=== PATIENT | female | born 1985 | race Caucasian/White ===

== ENCOUNTER → 2019-02-27 14:09 | Outpatient (BNVA) | payer BC, SELFPAY | PROVIDERS: Family Provider Nurse Practitioner Family; PCP Nurse Practitioner Family; Visit Provider Nurse Practitioner Women's Health | DX: Z01.89 Encounter for other specified special examinations (principal) | CPT/HCPCS: 84315 ==

== ENCOUNTER → 2019-03-07 16:45 | Outpatient (BNVA) | payer BC, SELFPAY | PROVIDERS: Family Provider Nurse Practitioner Family; PCP Nurse Practitioner Family; Visit Provider Obstetrics & Gynecology | DX: Z34.81 Encounter for supervision of other normal pregnancy, first trimester (principal) | CPT/HCPCS: 80307; 84315; 85027; 86592; 86762; 86803; 86850; 86900; 87086; 87340 ==

== ENCOUNTER → 2019-03-20 12:30 | Outpatient (BNVA) | payer BC, SELFPAY | PROVIDERS: Family Provider Nurse Practitioner Family; PCP Nurse Practitioner Family; Visit Provider Obstetrics & Gynecology | DX: O99.210 Obesity complicating pregnancy, unspecified trimester (principal) | CPT/HCPCS: 82950; 84315; 87491; 87591 ==

== ENCOUNTER → 2019-04-05 08:25 | Outpatient (BNVA) | payer OTHER, BC, SELFPAY | PROVIDERS: Family Provider Nurse Practitioner Family; PCP Nurse Practitioner Family; Referring Provider Obstetrics & Gynecology; Visit Provider Obstetrics & Gynecology | DX: O99.211 Obesity complicating pregnancy, first trimester (principal); R73.09 Other abnormal glucose; Z3A.12 12 weeks gestation of pregnancy | CPT/HCPCS: 82951; 82952 ==

== ENCOUNTER → 2019-04-19 08:03 | Outpatient (BNVA) | payer BC, SELFPAY | PROVIDERS: Family Provider Nurse Practitioner Family; PCP Nurse Practitioner Family; Visit Provider Obstetrics & Gynecology | DX: Z34.90 Encounter for supervision of normal pregnancy, unspecified, unspecified trimester (principal); R31.9 Hematuria, unspecified | CPT/HCPCS: 84315; 87086 ==

== ENCOUNTER → 2019-05-13 09:54 | Outpatient (BNVA) | payer BC, SELFPAY | PROVIDERS: Family Provider Nurse Practitioner Family; PCP Nurse Practitioner Family; Referring Provider Obstetrics & Gynecology; Visit Provider Obstetrics & Gynecology | DX: Z36.89 Encounter for other specified antenatal screening (principal); Z3A.20 20 weeks gestation of pregnancy | CPT/HCPCS: 76805 ==

== ENCOUNTER → 2019-05-16 08:20 | Outpatient (BNVA) | payer BC, SELFPAY | PROVIDERS: Family Provider Nurse Practitioner Family; PCP Nurse Practitioner Family; Visit Provider Obstetrics & Gynecology | DX: Z01.89 Encounter for other specified special examinations (principal) | CPT/HCPCS: 84315 ==

== ENCOUNTER → 2019-06-12 13:22 | Outpatient (BNVA) | payer BC, SELFPAY | PROVIDERS: Family Provider Nurse Practitioner Family; PCP Nurse Practitioner Family; Visit Provider Obstetrics & Gynecology | DX: Z34.82 Encounter for supervision of other normal pregnancy, second trimester (principal); Z3A.24 24 weeks gestation of pregnancy | CPT/HCPCS: 76816; 84315 ==

== ENCOUNTER → 2019-07-08 07:46 | Outpatient (BNVA) | payer BC, SELFPAY | PROVIDERS: Family Provider Nurse Practitioner Family; PCP Nurse Practitioner Family; Visit Provider Obstetrics & Gynecology | DX: O99.211 Obesity complicating pregnancy, first trimester (principal); Z39.1 Encounter for care and examination of lactating mother; O26.891 Other specified pregnancy related conditions, first trimester; Z67.91 Unspecified blood type, Rh negative; O99.213 Obesity complicating pregnancy, third trimester; O26.893 Other specified pregnancy related conditions, third trimester; J45.909 Unspecified asthma, uncomplicated; Z3A.28 28 weeks gestation of pregnancy | CPT/HCPCS: 82951; 82952; 84315; 85027; 86850 ==

== ENCOUNTER 2019-08-16 06:56 | Outpatient (CLI) | payer BC, SELFPAY ==
--- NOTE | 2019-08-16 07:05 | US_ITS ---
WS: [id number] BIOPHYSICAL PROFILE HISTORY: GDM BPP @ 7:15am COMPARISON: 08/09/2019 Cardiac activity: 133 bpm. Cervix: Not visualized. Placenta: Anterior, no previa or abruption. Placenta grade: 1 Parameters are as follows: Breathin Movement: 2 Tone: 2 Fluid volume: 2 Largest vertical pocket of amniotic fluid 5.3 cm. 1. Biophysical profile score: 8/8. 2. Normal cardiac activity. US/US OB BPP wo NST [id number] IMPRESSION:
== END 2019-08-16 06:57 | disposition home or self-care (01) ==
PROVIDERS: Family Provider Nurse Practitioner Family; PCP Nurse Practitioner Family; Visit Provider Obstetrics & Gynecology
DX: O24.410 Gestational diabetes mellitus in pregnancy, diet controlled (principal); O09.893 Supervision of other high risk pregnancies, third trimester
CPT/HCPCS: 76819

== ENCOUNTER 2019-08-16 07:30 | Outpatient (CLI) | payer BC, OTHER, SELFPAY ==
[2019-08-16 07:47] VITALS: BP 0/0
[2019-08-16 07:48] VITALS: BP 113/60; PULSE 84
[2019-08-16 08:18] VITALS: BP 104/64; PULSE 80
[2019-08-16 09:55] VITALS: BP 104/64; PULSE 80
== END 2019-08-16 08:25 | disposition home or self-care (01) ==
LOC: OPOB 07:36 → OBGYN 07:37
PROVIDERS: Family Provider Nurse Practitioner Family; PCP Nurse Practitioner Family; Visit Provider Obstetrics & Gynecology
DX: O24.919 Unspecified diabetes mellitus in pregnancy, unspecified trimester (principal); Z3A.00 Weeks of gestation of pregnancy not specified
CPT/HCPCS: 59025; 99211

== ENCOUNTER → 2019-09-05 09:21 | Outpatient (BNVA) | payer BC, OTHER, SELFPAY | PROVIDERS: Family Provider Nurse Practitioner Family; PCP Nurse Practitioner Family; Visit Provider Obstetrics & Gynecology | DX: O09.893 Supervision of other high risk pregnancies, third trimester (principal); O24.410 Gestational diabetes mellitus in pregnancy, diet controlled; O99.613 Diseases of the digestive system complicating pregnancy, third trimester; K21.9 Gastro-esophageal reflux disease without esophagitis | CPT/HCPCS: 84315; 87081 ==

== ENCOUNTER 2019-09-28 11:49 | Inpatient (IN) | payer BC, OTHER, SELFPAY ==
[2019-09-28] VITALS (15 sets, daily range): BP systolic 0–127; BP diastolic 0–73; PULSE 66–84; RESP 16; TEMP 36.5–36.6; BMI 36.9
[2019-09-28 13:00] LABS: Basophils % 0.3 %; Eosinophils # 0.1 10^3/uL (0.0-0.8); Eosinophils % 0.4 %; Hemoglobin 12.2 g/dL (11.5-15.3); Lymphocytes # 2.8 10^3/uL (0.8-4.8); Lymphocytes % 23.6 %; Mean Corpuscular Hemoglobin 28.8 pg (28.0-34.0); Mean Corpuscular Volume 87.5 fL (81-99); Mean Platelet Volume 10.3 fL (7.4-10.4); Monocytes # 0.5 10^3/uL (0.2-0.9); Monocytes % 4.5 %; Neutrophils # 8.44 10^3/uL (1.8-7.7); Neutrophils % 70.6 %; Nucleated Red Blood Cells % 0 %; Platelet Count 302 10^3/cmm (130-400); Red Blood Count 4.23 10^6/uL (4.1-5.3); Red Cell Distribution Width 13.9 % (12.1-15.1)
[2019-09-28] MEDS: miSOPROStol 100 mcg tablet 25 MCG VAGINAL (13:16)
[2019-09-28 15:25] LABS: Glucose Point of Care 82 mg/dL (70-110)
[2019-09-28 17:17] LABS: Glucose Point of Care 130 mg/dL (70-110)
[2019-09-28 19:22] LABS: Glucose Point of Care 72 mg/dL (70-110)
[2019-09-28 20:54] LABS: Glucose Point of Care 84 mg/dL (70-110)
[2019-09-28 22:39] LABS: Glucose Point of Care 117 mg/dL (70-110)
[2019-09-29] VITALS (167 sets, daily range): BP systolic 0–135; BP diastolic 0–82; PULSE 51–103; TEMP 36.5–37; O2SAT 94–99
[2019-09-29] MEDS: ondansetron 2 mg/ML SDV 2 mL 4 MG IVP ×2 (00:13→16:20)
[2019-09-29] MEDS: dextrose 5%-lactated ringers 1,000 ML 125 ML IV ×2 (00:14→20:30)
[2019-09-29 00:44] LABS: Glucose Point of Care 101 mg/dL (70-110)
[2019-09-29] MEDS: oxytocin 30 UNIT/500 ML BAG IV (01:07)
[2019-09-29] MEDS: lactated ringers 1,000 ML 999 ML IV ×2 (01:19→05:32)
--- NOTE | 2019-09-29 01:41 | PC.NURSE ---
Fluid bolus going for epidural
[2019-09-29] MEDS: lactated ringers 1,000 ML 500 ML IV (02:31)
--- NOTE | 2019-09-29 03:05 | ANES.PREANE2 ---
Pre-Anesthetic Assessment Pre-Anesthetic Assessment: Height/Weight: Height 1.7 m Weight 107.048 kg Temp Pulse Resp BP Pulse Ox 97.9 F 72 16 128/61 94 09/28/19 22:30 09/29/19 03:01 09/28/19 12:26 09/29/19 03:01 09/29/19 03:01 Preop Diagnosis: Labor Pain Familial anesthetic complications: DON Was Beta Mendez taken within 24 hours: N/A Last Intake: 21:00 Social: Social History: No alcohol and No tobacco Exam: Pre-Anes Outpt Exam: alert, oriented x 3, clear to auscultation bilaterally and regular rate & rhythm Airway: Submandibular: WNL Cervical ROM: WNL MP: 2 Dentition: Full History/ROS: No significant history except as noted and No significant complaints Pulmonary: Pulmonary: None reported CV/HEM: CV/HEM: None reported : : None reported Hepatic: Hepatic: None reported GI: GI: GERD Metabolic: Metabolic: DM Musc/skel: Musc/skel: None reported Neuropsych: Neuropsych: None reported Anesthetic Plan: ASA status: 2 Anesthesia: Anesthesia Evaluation and Regional (specify below) Other: DON Risk of > 500 ml blood loss (7ml/kg in children): No Meds/Allergies Current Medications: Current Medications Generic Name Dose Route Start Last Admin Trade Name Freq PRN Reason Stop Dose Admin Dextrose/Lactated Ringer's 1,000 mls @ 125 m ls/hr 09/28/19 12:30 09/29/19 01:14 Dextrose 5%-Lact ated Ringers IV 0 mls/hr .Q8H ZULLY Infusion Lactated Ringer's 1,000 mls @ 999 m ls/hr 09/28/19 12:25 09/29/19 01:19 Lactated Ringers IV 999 mls/hr .Q1H1M PRN Administration BLEEDING Oxytocin 30 unit in 500 ml s @ 1 mls/hr 09/29/19 01:00 09/29/19 01:14 Pitocin IV 2 milliunit/min .Q24H ZULLY 2 mls/hr Titration Protocol 1 MILLIUNIT/MIN Ondansetron HCl 4 mg 09/28/19 12:25 09/29/19 00:13 Zofran IVP 4 mg Q4H PRN Administration NAUSEA AND VOMITI NG PFSH Anesthesia PFSH: Medical History Allergy-induced asthma Surgical History History of dilatation and curettage (03/09/18) Treatment blighted ovum. Performed by Dr. Milo Walden at [facility] in [place], [place]. S/P tonsillectomy and adenoidectomy (~1992) 8 years old Family History Family/Other Thyroid disease Paternal aunt Breast cancer Maternal aunt Uterine cancer Great-grandmother Grandmother Diabetes Maternal Hypertension Paternal Stroke Paternal Hyperlipidemia Paternal Grandfather Diabetes Paternal Hypertension Paternal CAD (coronary artery disease) Paternal Family/Other Diabetes Paternal aunt Father Hypertension Stroke Grandfather CAD (coronary artery disease) Maternal Social History Smoking and tobacco status: former smoker Alcohol intake: never Other details last substance use: Denies drug use. Female Reproductive History: Date of last menstrual period: 12/23/18 : 2 Para: 1 Spontaneous abortions: Yes Data Anesthesia CBC & Chem 7: 09/28/19 12:40 Other Labs: Laboratory Results - last 48 hr 09/28/19 09/28/19 09/28/19 12:40 15:19 17:10 WBC 12.0 H RBC 4.23 Hgb 12.2 Hct 37.0 MCV 87.5 MCH 28.8 MCHC 33.0 RDW 13.9 Plt Count 302 MPV 10.3 Neut % (Auto) 70.6 Lymph % (Auto) 23.6 [place] % (Auto) 4.5 Eos % (Auto) 0.4 Baso % (Auto) 0.3 Neut # (Auto) 8.44 H Lymph # (Auto) 2.8 [place] # (Auto) 0.5 Eos # (Auto) 0.1 Baso # (Auto) 0.0 Nucleated RBC % (auto) 0 Nucleated RBCs # 0.0 POC Glucose 82 130 09/28/19 09/28/19 09/28/19 19:16 20:50 22:31 WBC RBC Hgb Hct MCV MCH MCHC RDW Plt Count MPV Neut % (Auto) Lymph % (Auto) [place] % (Auto) Eos % (Auto) Baso % (Auto) Neut # (Auto) Lymph # (Auto) [place] # (Auto) Eos # (Auto) Baso # (Auto) Nucleated RBC % (auto) Nucleated RBCs # POC Glucose 72 84 117 09/29/19 00:39 WBC RBC Hgb Hct MCV MCH MCHC RDW Plt Count MPV Neut % (Auto) Lymph % (Auto) [place] % (Auto) Eos % (Auto) Baso % (Auto) Neut # (Auto) Lymph # (Auto) [place] # (Auto) Eos # (Auto) Baso # (Auto) Nucleated RBC % (auto) Nucleated RBCs # POC Glucose 101 Cardiac Studies: No Data to Display
--- NOTE | 2019-09-29 03:19 | ANES.PROC ---
Anesthesia Procedures Procedure/Date: 09/29/19 Epidural: Time Out Performed: Yes Consents Signed: Procedure Consent and No Consent Needed Consent: requested by attending/covering physician and from patient Lumbar Level: L3-L4 Epidural position: sitting Epidural procedure: sterile prep of area, 1% lidocaine to numb the area, 18 g needle, negative for paresthesia passed, test dose given, 1.5% xylocaine 1:200k epi, placed PCEA, sterile dressing applied, L.U.D. no apparent complications and 0.2% Ropiavacaine @ mls/hr Additional Comments: 0251 Test dose lido 1.5% 3cc given. Pt stating legs feel numb, but moving.Suspect intrathecal catheter. Dr Yang notified. Decision to leave cath in and run Ropiv at 2cc/hour. Pt hemodynamically stable.
[2019-09-29 03:47] LABS: Glucose Point of Care 101 mg/dL (70-110)
[2019-09-29] MEDS: diphenhydrAMINE 50 mg/mL SDV 1mL 25 MG IVP (04:50)
[2019-09-29 05:31] LABS: Glucose Point of Care 219 mg/dL (70-110)
--- NOTE | 2019-09-29 05:38 | PC.NURSE ---
Pts. BP was 87/49, so other staff started bolus of D5 fluid unaware pt. was GDM.
--- NOTE | 2019-09-29 05:43 | PC.NURSE ---
Bolus of D5 fluid was given by staff unaware of Dx of GDM. Pts. glucose was 219. If next glucose is elevated call doctor with results.
[2019-09-29 08:15] LABS: Glucose Point of Care 111 mg/dL (70-110)
[2019-09-29 09:45] LABS: Glucose Point of Care 81 mg/dL (70-110)
[2019-09-29] MEDS: acetaminophen 325 mg Tablet 650 MG PO (10:03)
[2019-09-29] MEDS: cyclobenzaprine 10 mg Tablet PO (10:38)
--- NOTE | 2019-09-29 12:29 | ANES.PROC ---
Anesthesia Procedures Procedure/Date: 09/29/19 Procedure Narrative: RN notified me at home of patient not having sufficient pain relief. Offered to replace epidural. Zofran 4mg given IVP for active nausea. Fentanyl 100mcg given. current epidural pulled, catheter intact. epidural replaced. Pt tolerated procedure very well. no complications noted. Epidural: Time Out Performed: Yes Consents Signed: Procedure Consent Consent: requested by attending/covering physician, risks and benefits reviewed and patient agrees to proceed Lumbar Level: L4-L5 Epidural position: sitting Epidural procedure: sterile prep of area, 1% lidocaine to numb the area, 18 g needle, negative for paresthesia passed, neg for paresthesia, test dose given, 1.5% xylocaine 1:200k epi (5ml), placed PCEA, no systemic response, sterile dressing applied, L.U.D. no apparent complications and 0.2% Ropiavacaine @ mls/hr
[2019-09-29 12:49] LABS: Glucose Point of Care 92 mg/dL (70-110)
[2019-09-29] MEDS: dextrose 5%-lactated ringers 1,000 ML 999 ML IV (12:56)
[2019-09-29 15:20] LABS: Glucose Point of Care 107 mg/dL (70-110)
[2019-09-29 16:38] LABS: Glucose Point of Care 110 mg/dL (70-110)
[2019-09-29 18:39] LABS: Glucose Point of Care 106 mg/dL (70-110)
[2019-09-29] MEDS: lidocaine 2% INJ 20 mL INJECTION (21:00)
--- NOTE | 2019-09-29 21:33 | P.PCNOB_ITS ---
Delivery Note: Date of delivery: September 29, 2019 Pre-delivery diagnoses: 1. Diet-controlled gestational diabetes in third trimester 2. at 40-0/7 weeks gestation 3. Obesity in in third trimester 4. Rh- status in in third trimester 5. Gastroesophageal reflux in in third trimester Post-delivery diagnoses: 1. Diet controlled gestational diabetes - delivered 2. at 40-0/7 weeks gestation. 3. Obesity in - delivered 4. Rh- status in - delivered 5. Gastroesophageal reflux in - delivered 6. Viable female infant Procedure: Spontaneous vaginal delivery Op report anesthesia: Epidural Delivering Physician: Dr. Milo Walden Estimated blood loss (mL): 250 Pre-Delivery Course: Patient is a 34-year-old white female 2, para 0-0-1-0 with an LMP of 12/23/2018 and an EDC of 09/29/2019 based on LMP and consistent with 6-week ultrasound, which placed her at 39-6/7 weeks gestation at the time of admission. She presented to labor and delivery at approximately noon on 09/28/2023 cervical ripening and induction of labor due to gestational diabetes at full-term. She initially received 1 dose of Cytotec and proceeded to contract through the day. By the evening she was started on low-dose continuous Pitocin for cervical ripening. In the morning of 09/28, increasing regimen of Pitocin was started. She had spontaneous rupture of membranes with clear fluid at 09:34. She became more uncomfortable and had epidural placed. She initially made slow change after epidural placement but did progress to complete dilation by 19:20. Sugars were checked through the labor course and she did not require insulin. monitoring was reassuring during the labor course. Delivery: Patient was complete at 19:20. She labor down and started pushing at 20:06. She delivered at 20:43 as a spontaneous vaginal delivery of an occiput anterior female over an intact perineum under epidural anesthesia. Following delivery of the infant's head, no nuchal cords were noted. The rest of the infant delivered atraumatically with the left shoulder anterior. The baby was spontaneously crying and placed on the mother's abdomen where it was left in the care of the waiting nurses. Cord was clamped and cut. Cord blood was obtained. Pitocin bolus was started. Placenta delivered intact by simple expression at 20:53. The cervix and vagina were palpated and noted to be intact. The labia were inspected and noted to be intact except for superficial bilateral periurethral lacerations which required no repair. She also had hymenal ring lacerations at 8:00 and 5:00 that extended to the labia majora. These did extend into the deeper tissues and required surgical repair. FINDINGS 1. Viable female infant weighing 7 lbs 3 oz (3270 g) with a length of 20 inches and Apgars of 9 at 1 minute and 9 at 5 minutes. 2. Three-vessel cord with no loops of nuchal cord noted. 3. Normal-appearing placenta with an eccentric cord insertion. Post-Delivery Status: Mother and infant were left to recover in satisfactory condition. Coding Level of Care Code Acute Hunting And Fishing Guide for Radha Márquez
[2019-09-29] MEDS: lanolin oint 7 gm 1 APPLIC TOPICAL (23:57)
[2019-09-29] MEDS: benzocaine-menthol 78 gm Canister 1 SPRAY TOPICAL (23:57)
[2019-09-29] MEDS: TRAMadol 50 mg Tablet PO (23:58)
[2019-09-30] VITALS (7 sets, daily range): BP systolic 97–120; BP diastolic 61–71; PULSE 60–79; RESP 16–18; TEMP 36.5–36.9; O2SAT 95
--- NOTE | 2019-09-30 01:15 | P.ANESASSM_ITS ---
Pre-Anesthetic Assessment Pre-Anesthetic Assessment: Height/Weight: Height 1.7 m Weight 107.048 kg Temp Pulse Resp BP Pulse Ox 98.6 F 77 16 0/0 97 09/29/19 16:30 09/29/19 23:24 09/28/19 12:26 09/29/19 23:38 09/29/19 12:16 Preop Diagnosis: Labor Pain Was Beta Mendez taken within 24 hours: N/A Social: Social History: No alcohol and No tobacco Exam: Pre-Anes Outpt Exam: alert, oriented x 3, clear to auscultation bilaterally and regular rate & rhythm Airway: Submandibular: WNL Cervical ROM: WNL MP: 2 History/ROS: No significant history except as noted Pulmonary: Pulmonary: None reported CV/HEM: CV/HEM: None reported : : None reported Hepatic: Hepatic: None reported GI: GI: None reported Metabolic: Metabolic: None reported Musc/skel: Musc/skel: None reported Neuropsych: Neuropsych: None reported Anesthetic Plan: ASA status: 1 Anesthesia: Anesthesia Evaluation Meds/Allergies Current Medications: Current Medications Generic Name Dose Route Start Last Admin Trade Name Freq PRN Reason Stop Dose Admin Benzocaine 1 spray 09/29/19 22:34 09/29/19 23:57 Dermoplast TOPICAL 1 spray PRN PRN Administration PAIN Lactated Ringer's 1,000 mls @ 999 m ls/hr 09/28/19 12:25 09/29/19 16:36 Lactated Ringers IV Infused .Q1H1M PRN Infusion BLEEDING Lanolin 1 applic 09/29/19 22:34 09/29/19 23:57 Lanolin Oint TOPICAL 1 applic PRN PRN Administration DRYNESS Tramadol HCl 50 - 100 mg 09/29/19 22:34 09/29/19 23:58 Ultram PO 100 mg Q4H PRN Administration MODERATE TO SEVER E PAIN PFSH Anesthesia PFSH: Medical History Allergy-induced asthma Surgical History History of dilatation and curettage (03/09/18) Treatment blighted ovum. Performed by Dr. Milo Walden at [facility] in [place], [place]. S/P tonsillectomy and adenoidectomy (~1992) 8 years old Family History Family/Other Thyroid disease Paternal aunt Breast cancer Maternal aunt Uterine cancer Great-grandmother Grandmother Diabetes Maternal Hypertension Paternal Stroke Paternal Hyperlipidemia Paternal Grandfather Diabetes Paternal Hypertension Paternal CAD (coronary artery disease) Paternal Family/Other Diabetes Paternal aunt Father Hypertension Stroke Grandfather CAD (coronary artery disease) Maternal Social History Smoking and tobacco status: former smoker Alcohol intake: never Other details last substance use: Denies drug use. Female Reproductive History: Date of last menstrual period: 12/23/18 : 2 Para: 1 Spontaneous abortions: Yes Data Anesthesia CBC & Chem 7: 09/28/19 12:40 Other Labs: Laboratory Results - last 48 hr 09/28/19 09/28/19 09/28/19 12:40 15:19 17:10 WBC 12.0 H RBC 4.23 Hgb 12.2 Hct 37.0 MCV 87.5 MCH 28.8 MCHC 33.0 RDW 13.9 Plt Count 302 MPV 10.3 Neut % (Auto) 70.6 Lymph % (Auto) 23.6 [place] % (Auto) 4.5 Eos % (Auto) 0.4 Baso % (Auto) 0.3 Neut # (Auto) 8.44 H Lymph # (Auto) 2.8 [place] # (Auto) 0.5 Eos # (Auto) 0.1 Baso # (Auto) 0.0 Nucleated RBC % (auto) 0 Nucleated RBCs # 0.0 POC Glucose 82 130 09/28/19 09/28/19 09/28/19 19:16 20:50 22:31 WBC RBC Hgb Hct MCV MCH MCHC RDW Plt Count MPV Neut % (Auto) Lymph % (Auto) [place] % (Auto) Eos % (Auto) Baso % (Auto) Neut # (Auto) Lymph # (Auto) [place] # (Auto) Eos # (Auto) Baso # (Auto) Nucleated RBC % (auto) Nucleated RBCs # POC Glucose 72 84 117 09/29/19 09/29/19 09/29/19 00:39 03:31 05:27 WBC RBC Hgb Hct MCV MCH MCHC RDW Plt Count MPV Neut % (Auto) Lymph % (Auto) [place] % (Auto) Eos % (Auto) Baso % (Auto) Neut # (Auto) Lymph # (Auto) [place] # (Auto) Eos # (Auto) Baso # (Auto) Nucleated RBC % (auto) Nucleated RBCs # POC Glucose 101 101 219 09/29/19 09/29/19 09/29/19 07:34 09:33 12:34 WBC RBC Hgb Hct MCV MCH MCHC RDW Plt Count MPV Neut % (Auto) Lymph % (Auto) [place] % (Auto) Eos % (Auto) Baso % (Auto) Neut # (Auto) Lymph # (Auto) [place] # (Auto) Eos # (Auto) Baso # (Auto) Nucleated RBC % (auto) Nucleated RBCs # POC Glucose 111 81 92 09/29/19 09/29/19 09/29/19 14:35 16:32 18:32 WBC RBC Hgb Hct MCV MCH MCHC RDW Plt Count MPV Neut % (Auto) Lymph % (Auto) [place] % (Auto) Eos % (Auto) Baso % (Auto) Neut # (Auto) Lymph # (Auto) [place] # (Auto) Eos # (Auto) Baso # (Auto) Nucleated RBC % (auto) Nucleated RBCs # POC Glucose 107 110 106 Cardiac Studies: No Data to Display
[2019-09-30] MEDS: ondansetron 2 mg/ML SDV 2 mL 4 MG IVP (05:30)
[2019-09-30 09:44] LABS: Hematocrit 32.3 % (37.0-47.0); Hemoglobin 10.8 g/dL (11.5-15.3); Mean Corpuscular HGB Conc 33.4 g/dL (30.0-36.0); Mean Corpuscular Hemoglobin 29.9 pg (28.0-34.0); Mean Corpuscular Volume 89.5 fL (81-99); Mean Platelet Volume 10.4 fL (7.4-10.4); Platelet Count 210 10^3/cmm (130-400); Red Blood Count 3.61 10^6/uL (4.1-5.3); Red Cell Distribution Width 13.9 % (12.1-15.1); White Blood Count 17.2 10^3/uL (4.0-10.0)
[2019-09-30] MEDS: docusate sodium 100 mg Capsule PO ×2 (09:51→17:16)
[2019-09-30] MEDS: prenatal vitamin Capsule 1 CAP PO (09:51)
[2019-09-30] MEDS: HYDROcodone-acetaminophen 5-325 mg Tablet 1 TAB PO ×2 (09:51→17:16)
[2019-09-30] MEDS: pantoprazole DR 40 mg Tablet PO (09:52)
[2019-09-30] MEDS: cyclobenzaprine 10 mg Tablet PO (10:51)
--- NOTE | 2019-09-30 18:13 | P.PN_ITS ---
Subjective Subjective: Interval history: Complains of shoulder and neck pain., States was present prior to delivery, but has worsened since delivery. Denies headache. Denies shortness of breath or chest pains. Denies lightheadedness or dizziness with ambulation. Reports tolerating a regular diet. Denies problems with urination. States bleeding has slowed. Reports has been having difficulty with breast-feeding, but the nurses have been working with her. Vitals/I&O/Wt Last Vital Signs Temp 97.7 F 09/30/19 16:00 Pulse 62 09/30/19 16:00 Resp 18 09/30/19 16:00 BP 97/65 09/30/19 16:00 Pulse Ox 95 09/30/19 16:00 09/30/19 09/30/19 09/30/19 06:59 14:59 22:59 Intake Total 0 / 0 Output Total 350 / 1200 Balance -350 / -332.183 0 / 0 Physical Exam Const: COMMON NORMALS: no acute distress, average body habitus, alert and well nourished GENERAL APPEARANCE: well developed ORIENTATION/CONSCIOUSNESS: Yes oriented to person, Yes oriented to place and Yes oriented to time Resp: COMMON NORMALS: normal respiratory effort and clear to auscultation bilaterally AUSCULTATION: clear to auscultation bilaterally Cardio: COMMON NORMALS: regular rate, regular rhythm, No gallops present (Cardio) and No rub (Cardio) RATE: regular rate RHYTHM: regular rhythm GI: COMMON NORMALS: Soft to palpation, non-tender, No hepatosplenomegaly present and no masses (Except for nontender post uterus, approximately 2 fingerbreadths below the umbilicus) AUSCULTATION: Yes normoactive bowel sounds PALPATION: Yes Soft to palpation, Yes No hepatosplenomegaly present and No Hernia present : EXTERNAL FEMALE EXAM: No Hernia present Extremity: COMMON NORMALS: no calf tenderness NARRATIVE EXTREMITY EXAM: Trace to 1+ lower extremity edema bilaterally. Neuro: SENSORIUM/ORIENTATION: Yes alert, Yes oriented to person, Yes oriented to place and Yes oriented to time Psych: COMMON NORMALS: normal affect MOOD & AFFECT: Yes euthymic mood Urinary Catheter Management^: Scott: Cath Placed During This Visit: yes, but has since been removed by the nurse Reason for Continuing Indwelling Catheter: Decision to DC Catheter Urinary Catheter Date of Insertion: 09/29/19 Urinary Catheter Time of Insertion: 03:50 Date Urinary Catheter Removed: 09/29/19 Time Urinary Catheter Discontinued: 20:00 Data : 09/30/19 09:20 A&P Assessment and plan (1) Gestational diabetes mellitus, delivered, current hospitalization: day 1, status post vaginal delivery approximately 20 hours post . Patient having shoulder and neck pain. Currently receiving Flexeril and hydrocodone as needed. Patient has had a wet tap with her epidural. Discussed with her that these symptoms should not be related to that. She has been able to ambulate to the restroom and is sitting up in bed without headache. Does not have symptoms of a spinal headache at this time. However, recommend keeping IV access. Encouraged caffeine intake to help with prevention of spinal headache if possible. Patient reporting difficulty with breast-feeding. Has been working with the nurses. May benefit from consultation with travel service consultant. Otherwise, continue present management. Plan to discharge to home tomorrow. Will need to lowered glucose tolerance test at her checkup. Status: Acute Attestations Medical Necessity Statement*: day 1, less than 24 hours after delivery. Coding Level of Care Code Acute Plumbing Engineering Draftsperson for Chg Fwd Diagnoses Gestational diabetes mellitus, delivered, current hospitalization O24.429
[2019-10-01] MEDS: HYDROcodone-acetaminophen 5-325 mg Tablet 1 TAB PO (01:55)
[2019-10-01 04:30] VITALS: BP 101/72; PULSE 66; RESP 16
[2019-10-01 08:50] VITALS: BP 112/64; PULSE 78; RESP 16; TEMP 36.8
[2019-10-01] MEDS: prenatal vitamin Capsule 1 CAP PO (08:50)
[2019-10-01] MEDS: pantoprazole DR 40 mg Tablet PO (08:50)
[2019-10-01] MEDS: docusate sodium 100 mg Capsule PO (08:51)
[2019-10-01] MEDS: cyclobenzaprine 10 mg Tablet PO (08:54)
--- NOTE | 2019-10-01 11:20 | P.DS_ITS ---
Discharge Providers Date of Admission: 09/28/19 11:50 Date of Discharge: October 01, 2019 Attending Provider at Admission: Milo Walden MD Attending Provider at Discharge: luz marina trejo MD Primary Care Provider: KYLIE Vivar Diagnoses at Discharge Discharge Diagnosis (1) Gestational diabetes mellitus, delivered, current hospitalization: Status: Acute Reason for Visit Reason for Visit: IUP Hospital Course Discharge Summary: Pre-delivery diagnoses: 1. Diet-controlled gestational diabetes in third trimester 2. at 40-0/7 weeks gestation 3. Obesity in in third trimester 4. Rh- status in in third trimester 5. Gastroesophageal reflux in in third trimester Post-delivery diagnoses: 1. Diet controlled gestational diabetes - delivered 2. at 40-0/7 weeks gestation. 3. Obesity in - delivered 4. Rh- status in - delivered 5. Gastroesophageal reflux in - delivered 6. Viable female Procedure: Spontaneous vaginal delivery anesthesia: Epidural Delivering Physician: Dr. Milo Walden Pre-Delivery Course: Patient is a 34-year-old white female 2, para 0-0-1-0 with an LMP of 12/23/2018 and an EDC of 09/29/2019 based on LMP and consistent with 6-week ultrasound, which placed her at 39-6/7 weeks gestation at the time of admission. She presented to labor and delivery at approximately noon on 09/28/2023 cervical ripening and induction of labor due to gestational diabetes at full-term. She initially received 1 dose of Cytotec and proceeded to contract through the day. By the evening she was started on low-dose continuous Pitocin for cervical ripening. In the morning of 09/28, increasing regimen of Pitocin was started. She had spontaneous rupture of membranes with clear fluid at 09:34. She became more uncomfortable and had epidural placed. She initially made slow change after epidural placement but did progress to complete dilation by 19:20. Sugars were checked through the labor course and she did not require insulin. monitoring was reassuring during the labor course. Delivery: Patient was complete at 19:20. She labor down and started pushing at 20:06. She delivered at 20:43 as a spontaneous vaginal delivery of an occiput anterior female over an intact perineum under epidural anesthesia. Following delivery of the infant's head, no nuchal cords were noted. The rest of the delivered atraumatically with the left shoulder anterior. The baby was spontaneously crying and placed on the mother's abdomen where it was left in the care of the waiting nurses. Cord was clamped and cut. Cord blood was obtained. Pitocin bolus was started. Placenta delivered intact by simple expression at 20:53. The cervix and vagina were palpated and noted to be intact. The labia were inspected and noted to be intact except for superficial bilateral periurethral lacerations which required no repair. She also had hymenal ring lacerations at 8:00 and 5:00 that extended to the labia majora. These did extend into the deeper tissues and required surgical repair. HOSPITAL COURSE: She underwent an uncomplicated vaginal delivery on 09/29/2019-C procedure note for details. She did well on day 0 and was ambulating well, tolerating regular diet, voiding freely, passing flatus. She was breast-feeding without difficulty and bonding well with her daughter. Pain was well-controlled with by mouth pain medication. She denied nausea, vomiting, fever, chills, shortness of breath, leg pain. She had moderate vaginal bleeding. On day #1 she continued to do well with stable vital signs and stable hemoglobin at 10.8. She continued to do well on day #2 without any problems. She was discharged home on day 2 in a stable condition. Warning signs for endometritis, mastitis, DVT/PE were reviewed with her. Post delivery activity restrictions were also reviewed with her at all her questions were answered to her satisfaction. She will discuss contraception with Dr. Walden at her visit EXAM AT DISCHARGE: Gen.: No acute distress Heart: S1-S2 heard, regular rate and rhythm Lungs: Clear to auscultation bilaterally Abdomen: Soft, fundus firm below umbilicus. Legs: No calf tenderness, trace bilateral pitting pedal edema. CONDITION AT DISCHARGE: Stable Physical Exam Urinary Catheter Management^: Scott: Cath Placed During This Visit: yes, but has since been removed by the nurse Reason for Continuing Indwelling Catheter: Decision to DC Catheter Urinary Catheter Date of Insertion: 09/29/19 Urinary Catheter Time of Insertion: 03:50 Date Urinary Catheter Removed: 09/29/19 Time Urinary Catheter Discontinued: 20:00 Discharge Data Vitals: Last Vital Signs Temp 97.7 F 09/30/19 22:00 Pulse 66 10/01/19 04:30 Resp 16 10/01/19 04:30 BP 101/72 10/01/19 04:30 Pulse Ox 95 09/30/19 22:00 Discharge Plan Discharge Patient Disposition: Home Condition: Stable Prescriptions: New hydrocodone-acetaminophen 5-325 mg tablet 1 tab PO Q6H Qty: 10 RF: 0 docusate sodium 100 mg Capsule 100 mg PO BID PRN (Reason: constipation) Qty: 30 RF: 0 ibuprofen 800 mg tablet 800 mg PO Q8H Qty: 30 RF: 0 Continued DHA 200 mg capsule PO DAILY RF: 0 loratadine [Claritin] 10 mg tablet 10 mg PO DAILY RF: 0 magnesium 30 mg tablet 30 mg PO DAILY RF: 0 omeprazole 20 mg capsule,delayed release(DR/EC) 20 mg PO DAILY Qty: 30 RF: 1 (DME) blood-glucose meter [Accu-Chek Makenna Plus Meter] Misc See Rx Instructions .ROUTE .MEDSUPPLY Qty: 1 RF: 3 Discharge Orders: Discharge Order (Routine); Ordered 10/01/19 Ordered By: Luz Marina Tineo Referrals: Milo Walden MD [Physician] - (6 week pp---fasting 2 hr GTT) Discharge Diet: Regular Activity Restrictions/Additional Instructions: Pelvic rest for 6 weeks, no heavy lifting for 6 weeks Discharge Attestations Time Spent in Discharge Care*: greater than 30 min Quality Metrics Clinical Quality Measures During this hospital stay, did patient experience: None Coding Level of Care Code Acute Income Auditor for g Fwd Diagnoses Gestational diabetes mellitus, delivered, current hospitalization O24.429
[2019-10-01 13:20] VITALS: BP 115/80; PULSE 71; RESP 16; TEMP 36.8
== END 2019-10-01 13:25 | disposition home or self-care (01) | DRG 807 ==
PROVIDERS: Admitting Provider Obstetrics & Gynecology; Family Provider Nurse Practitioner Family; PCP Nurse Practitioner Family; Visit Provider Obstetrics & Gynecology
DX: O24.420 Gestational diabetes mellitus in childbirth, diet controlled (principal); Z37.0 Single live birth; Z3A.40 40 weeks gestation of pregnancy; O99.214 Obesity complicating childbirth; O99.284 Endocrine, nutritional and metabolic diseases complicating childbirth; K21.9 Gastro-esophageal reflux disease without esophagitis; O71.82 Other specified trauma to perineum and vulva
CPT/HCPCS: 12345; 36415; 36416; 51702; 59025; 59409; 82962; 85025; 85027; 85460; 86850; 86900; 90384; 96372; 96374; 96375; 98960; 99211; G0378; G0379; J1200; J2405; J2795; J3010

== ENCOUNTER → 2019-10-23 09:12 | Outpatient (BNVA) | payer BC, SELFPAY | PROVIDERS: Family Provider Nurse Practitioner Family; PCP Nurse Practitioner Family; Visit Provider Obstetrics & Gynecology | DX: R35.0 Frequency of micturition (principal) | CPT/HCPCS: 80053; 81000; 87077; 87086; 87186 ==

== ENCOUNTER → 2019-11-04 14:49 | Outpatient (BNVA) | payer OTHER, SELFPAY | PROVIDERS: Family Provider Nurse Practitioner Family; PCP Nurse Practitioner Family; Visit Provider Obstetrics & Gynecology | DX: R39.15 Urgency of urination (principal); R89.8 Other abnormal findings in specimens from other organs, systems and tissues | CPT/HCPCS: 80053 ==

== ENCOUNTER → 2019-11-11 08:03 | Outpatient (BNVA) | payer BC, SELFPAY | PROVIDERS: Family Provider Nurse Practitioner Family; PCP Nurse Practitioner Family; Visit Provider Obstetrics & Gynecology | DX: O24.439 Gestational diabetes mellitus in the puerperium, unspecified control (principal) | CPT/HCPCS: 82947 ==

== ENCOUNTER 2019-11-18 10:42 | Outpatient (CLI) | payer BC, SELFPAY ==
[2019-11-18 11:59] LABS: Basophils # 0.1 10^3/uL (0.0-0.1); Basophils % 0.7 %; Eosinophils # 0.1 10^3/uL (0.0-0.8); Eosinophils % 1.1 %; Hematocrit 43.6 % (37.0-47.0); Hemoglobin 14.1 g/dL (11.5-15.3); Lymphocytes # 3.6 10^3/uL (0.8-4.8); Lymphocytes % 36.8 %; Mean Corpuscular HGB Conc 32.3 g/dL (30.0-36.0); Mean Corpuscular Hemoglobin 28.7 pg (28.0-34.0); Mean Corpuscular Volume 88.8 fL (81-99); Mean Platelet Volume 9.2 fL (7.4-10.4); Monocytes # 0.6 10^3/uL (0.2-0.9); Monocytes % 5.9 %; Neutrophils # 5.36 10^3/uL (1.8-7.7); Nucleated Red Blood Cells % 0 %; Platelet Count 363 10^3/cmm (130-400); Red Blood Count 4.91 10^6/uL (4.1-5.3); Red Cell Distribution Width 13.2 % (12.1-15.1); White Blood Count 9.7 10^3/uL (4.0-10.0)
[2019-11-18 12:21] LABS: Alanine Aminotransferase 18 U/L (0-33); Albumin Level 4.1 g/dL (3.5-5.2); Alkaline Phosphatase 104 IU/L (35-105); Aspartate Amino Transferase 18 U/L (0-32); Blood Urea Nitrogen 8 mg/dL (6-20); Calcium 8.8 mg/dL (8.5-10.5); Carbon Dioxide 27 mmol/L (22-29); Chloride 105 mmol/L (98-107); Globulin 3.2 g/dL (1.3-4.6); Glomerular Filtration Rate 64.3 mL/min (90-130); Glucose 86 mg/dL (65-115); Osmolality Calculated 290 mOsm/kg (285-295); Sodium 141 mmol/L (136-145); Total Bilirubin 0.3 mg/dL (0.15-1.2); Total Protein 7.3 g/dL (6.6-8.7)
== END 2019-11-18 10:43 | disposition home or self-care (01) ==
LOC: LAB 10:49
PROVIDERS: PCP Nurse Practitioner Family; Visit Provider Surgery
DX: K80.20 Calculus of gallbladder without cholecystitis without obstruction (principal)
CPT/HCPCS: 36415; 80053; 85025

== ENCOUNTER → 2019-11-22 11:07 | Outpatient (BNVA) | payer BC, SELFPAY | PROVIDERS: PCP Nurse Practitioner Family; Visit Provider Surgery | DX: Z20.828 Contact with and (suspected) exposure to other viral communicable diseases (principal) | CPT/HCPCS: 87635 ==

== ENCOUNTER 2019-11-26 07:50 | Day surgery (SDC) | payer BC, SELFPAY ==
[2019-11-25 13:00] VITALS: BMI 30.8
[2019-11-26] VITALS (10 sets, daily range): BP systolic 91–146; BP diastolic 47–94; PULSE 67–83; RESP 12–32; TEMP 36.2–36.8; O2SAT 95–100
[2019-11-26 08:08] LABS: OR HCG Qualitative Urine Negative (Negative)
[2019-11-26] MEDS: sodium chloride 0.9% 1,000 ML 30 ML IV (08:24)
--- NOTE | 2019-11-26 08:35 | ANES.PREANE2 ---
Pre-Anesthetic Assessment Pre-Anesthetic Assessment: Height/Weight: Height 1.7 m Weight 89.358 kg Temp Pulse Resp BP Pulse Ox 97.3 F L 69 18 112/78 97 11/26/19 08:05 11/26/19 08:05 11/26/19 08:05 11/26/19 08:05 11/26/19 08:05 Preop Diagnosis: Symptomatic cholelithiasis Proposed Procedure: Operation Date: 11/26/19 09:30 Proposed Procedures p Laparoscopic Cholecystectomy 49014 K80.20(Not Applicable) - Ezra Matos MD Familial anesthetic complications: Woke up with panic attack after her D& C Last intake: Intake Last Liquid Date 11/25/19 Last Liquid Time 20:00 Last Solid Date 11/25/19 Last Solid Time 20:00 Social: Social History: No alcohol and No tobacco Exam: Pre-Anes Outpt Exam: alert, oriented x 3, clear to auscultation bilaterally and regular rate & rhythm Airway: Cervical ROM: WNL MP: 2 Dentition: Full Pulmonary: Pulmonary: Asthma (allergy-induced) Metabolic: Comments: low blood sugar recently with her protein diet Neuropsych: Neuropsych: Anxiety Anesthetic Plan: ASA status: 2 Anesthesia: General Risk of > 500 ml blood loss (7ml/kg in children): No Meds/Allergies Current Medications: Current Medications Generic Name Dose Route Start Last Admin Trade Name Freq PRN Reason Stop Dose Admin Sodium Chloride 1,000 mls @ 30 ml s/hr 11/26/19 07:15 11/26/19 08:24 Sodium Chloride 0.9% IV 11/27/19 07:14 30 mls/hr .Q24H ZULLY Administration PFSH Anesthesia PFSH: Medical History Allergy-induced asthma Blood type O- History of gestational diabetes mellitus (GDM) Had diet controlled GDM in second . Obesity depression Surgical History History of dilatation and curettage (03/09/18) Treatment blighted ovum. Performed by Dr. Milo Walden at [facility] in [place], [place]. S/P tonsillectomy and adenoidectomy (~1992) 8 years old Family History Family/Other Thyroid disease Paternal aunt Breast cancer Maternal aunt Uterine cancer Great-grandmother Grandmother Diabetes Maternal Hypertension Paternal Stroke Paternal Hyperlipidemia Paternal Grandfather Diabetes Paternal Hypertension Paternal CAD (coronary artery disease) Paternal Family/Other Diabetes Paternal aunt Father Hypertension Stroke Grandfather CAD (coronary artery disease) Maternal Social History Smoking and tobacco status: former smoker Alcohol intake: never Other details last substance use: Denies drug use. Female Reproductive History: Date of last menstrual period: 11/06/19 Para: 1 Spontaneous abortions: Yes Data Anesthesia Other Labs: Laboratory Results - last 48 hr 11/26/19 07:30 Urine HCG, Qual Negative Cardiac Studies: No Data to Display
--- NOTE | 2019-11-26 09:20 | W.PM.OPSUD ---
Surgery/Procedure H&P Update DATE OF PROCEDURE: November 26, 2019 DATE H&P PERFORMED: 11/18/19 H&P UPDATE INFORMATION: I have reviewed H&P completed within last 30 days, I have examined patient prior to procedure and No changes to prior documentation PREOP DIAGNOSIS: Symptomatic cholelithiasis PRIMARY INDICATION FOR PROCEDURE: The same PLANNED PROCEDURE: Operation Date: 11/26/19 09:30 Proposed Procedures p Laparoscopic Cholecystectomy 64771 K80.20(Not Applicable) - Ezra Matos MD
[2019-11-26] MEDS: lidocaine 2% INJ 20 mL INJECTION (12:08)
--- NOTE | 2019-11-26 12:20 | P.OP_ITS ---
Operative Report Date of procedure: November 26, 2019 Pre-op Diagnosis: Symptomatic cholelithiasis Post-op diagnosis: other (Chronic calculus cholecystitis and extrusion of cystic duct stone) Procedure Done: Laparoscopic cholecystectomy Specimens removed/disposition: Gallbladder and contents Cystic duct stone Surgeon: Ezra Matos Door Liner: Surgical michael Bautista/medical student Nicole Circulating nurse Muriel Anesthesia: General (Dr. Davis and COMMERCIAL L[employer] FIXTURE ASSEMBLER Angel) Estimated blood loss (mL): 20 Condition: stable Disposition: same day Brief History: This is a pleasant 34 years old female patient presented with symptomatic cholelithiasis. . Plan of care; After thorough history physical examination and reviewing the chart ,I counseled the patient for laparoscopic cholecystectomy possible open, indications risks including but not limited injury to the common bile duct and other viscera.benefits and alternatives all discussed with the patient, and she did agree to proceed. All questions have been answered and all concerns have been addressed to patient's satisfaction. Rationale was carefully and clearly discussed with the patient.Appropriate informed consent have been reviewed and signed. Procedure: Patient was identified in the holding area and taken back to the operative suite, placed in supine position intubated by anesthesia . Time-out was done verifying the patient's name/date of /planned procedure and destination after the procedure, all were in agreement. SCDs confirmed to be functioning, preoperative antibiotics administered per protocol, and beta krupa protocol was confirmed. Patient was appropriately secured to the table, footboard was applied to the OR table, before prep and drape anesthesia was asked to tilt the table back and forth to make sure that the patient is appropriately secured and she was. Prep and drape of the abdomen was done under the usual sterile technique, followed by that supraumbilical skin incision,skin incision was done by a 15 blade knife, and stay sutures were applied to the fascia and Partida trocar technique was used to enter the abdominal without injuring any abdominal viscera, started by low flow gas insufflation followed by a high flow, started with a 10 mm laparoscope and under direct vision there was no evidence of any injuries, the scope then switched to a 30? ,10 millimeter scope and under direct visualization 5 millimeter trocar was inserted in the epigastric region followed by two 5 mm trocars were inserted in the right upper quadrant that was done after injection of local lidocaine 2% at all incision sites. Gallbladder showed chronic calculus cholecystitis Patient was then positioned in the head up and tilted to the left Ratcheted forceps were introduced into the lateral most 5mm port and was applied unto the fundus of the gallbladder cephalad and using Bullet forceps the infundibulum of the gallbladder was retracted laterally. Using [place] forceps then L-hook cautery to dissect the peritoneum overlying the Calot's triangle whihc was then opened medially and laterally until the cystic duct and the cystic artery were skeletonized. Dissection was carried along the body of the gallbladder and after ensuring critical view of safety was identfied. Cystic duct and cystic artery where seen connected to the gallbladder. Clips were applied on the cystic duct towards the common bile duct 1 towards the gallbladder then divided is in sharp scissors, noticed to have extrusion of a cystic duct stone and that was removed and sent out separately for pathology otherwise there was no palpable stones at the cystic duct stump prior to clipping., 2 clips were then applied onto the cystic artery and 1 towards the gallbladder and divided by sharp scissors. Dissection was then carried along of the gallbladder from the gallbladder fossa using cautery as well as sharp dissection with heat energy. The gallbla dder then was dissected out from the gallbladder fossa totally , cholecystectomy was then achieved and was placed in an Endo Catch bag and then retrieved from the Partida trocar site under direct visualization using a 5 mm 30? scope through the epigastric trocar, specimen was then passed to the circulating nurse to go for permanent pathology,irrigation and hemostasis was done to the gallbladder fossa after hemostasis was secured, final survey laparoscopy was done that showed no injuries.Suction irrigation was obtained. The supraumbilical fascial defect was then closed using interrupted PDS sutures using a fascial closure device ;Lon Landry under direct visualization Gas was allowed to deflate,Trocars were then taken out under direct vision there was no evidence of bleeding Specimens were passed to the circulating nurse for permanent pathology. No drains were placed and the supraumbilical incision as well as all trocar sites were closed by by 4-0 Monocryl to approximate the skin edges of the supraumbilical incision, dressing was applied in the form of Dermabond and the patient patient got extubated and was taken to recovery area in a stable condition. Count of sponges, needles and instruments were completed at the end of the procedure I was present for the whole entire procedure.
[2019-11-26] MEDS: fentaNYL 50 mcg/mL INJ 2mL IVP ×2 (12:40→12:45)
--- NOTE | 2019-11-26 13:00 | ANE.PACU2 ---
Inpatient post-anesthesia follow up: Airway intact: Yes Vital signs: Temperature 97.2 F Pulse Rate 73 Respiratory Rate 18 Blood Pressure 108/63 Pulse Oximetry 96 Oxygen Delivery Me thod Room Air Oxygen Flow Rate 8 Fraction of Inspir ed Oxygen Hydration adequate: Yes Nausea and vomiting: No Pain level: 2 Mental status: Baseline
== END 2019-11-26 13:50 | disposition home or self-care (01) ==
PROVIDERS: PCP Nurse Practitioner Family; Visit Provider Surgery
PROC: 0FT44ZZ Resection of Gallbladder, Percutaneous Endoscopic Approach (ICD-10-PCS; CPT 47562; principal; 2019-11-26 09:30)
DX: K80.10 Calculus of gallbladder with chronic cholecystitis without obstruction (principal); E66.9 Obesity, unspecified; Z68.30 Body mass index [BMI] 30.0-30.9, adult; Z87.891 Personal history of nicotine dependence
CPT/HCPCS: 47562; 12345; 81025; 84703; 88300; 88304; 96365; J0131; J0690; J1100; J2250; J2370; J2405; J2704; J2710; J3010; J3490; J7030

== ENCOUNTER → 2020-09-21 13:14 | Outpatient (BNVA) | payer BC, SELFPAY | PROVIDERS: Visit Provider Obstetrics & Gynecology | DX: N39.0 Urinary tract infection, site not specified (principal) | CPT/HCPCS: 81000; 87077; 87086; 87184 ==

== ENCOUNTER → 2020-11-16 10:57 | Outpatient (BNVA) | payer BC, SELFPAY | PROVIDERS: Visit Provider Obstetrics & Gynecology | DX: Z00.00 Encounter for general adult medical examination without abnormal findings (principal) | CPT/HCPCS: 83036; 83525; 84443; 88175 ==

== ENCOUNTER → 2020-12-01 13:09 | Outpatient (BNVA) | payer BC, SELFPAY | PROVIDERS: Visit Provider Obstetrics & Gynecology | DX: N85.4 Malposition of uterus (principal); N83.8 Other noninflammatory disorders of ovary, fallopian tube and broad ligament; N83.202 Unspecified ovarian cyst, left side | CPT/HCPCS: 76830 ==

== ENCOUNTER → 2021-01-20 10:16 | Outpatient (BNVA) | payer BC, SELFPAY | PROVIDERS: Visit Provider Obstetrics & Gynecology | DX: R89.9 Unspecified abnormal finding in specimens from other organs, systems and tissues (principal); R39.9 Unspecified symptoms and signs involving the genitourinary system | CPT/HCPCS: 81000; 83036; 83525; 87077; 87086; 87184 ==

== ENCOUNTER → 2021-02-25 08:26 | Outpatient (BNVA) | payer BC, SELFPAY | PROVIDERS: Visit Provider Nurse Practitioner Women's Health | DX: N92.6 Irregular menstruation, unspecified (principal) | CPT/HCPCS: 81025 ==

== ENCOUNTER → 2021-04-01 08:34 | Outpatient (BNVA) | payer BC, SELFPAY | PROVIDERS: Visit Provider Obstetrics & Gynecology | DX: Z34.90 Encounter for supervision of normal pregnancy, unspecified, unspecified trimester | CPT/HCPCS: 80307; 82950; 84315; 84443; 85025; 86592; 86762; 86803; 86850; 86900; 87086; 87340; 87806 ==

== ENCOUNTER → 2021-04-07 08:08 | Outpatient (BNVA) | payer BC, SELFPAY | PROVIDERS: PCP Nurse Practitioner Family; Visit Provider Obstetrics & Gynecology | DX: O09.899 Supervision of other high risk pregnancies, unspecified trimester (principal) | CPT/HCPCS: 82951; 82952 ==

== ENCOUNTER → 2021-05-03 13:11 | Outpatient (BNVA) | payer BC, SELFPAY | PROVIDERS: PCP Nurse Practitioner Family; Visit Provider Obstetrics & Gynecology | DX: O09.899 Supervision of other high risk pregnancies, unspecified trimester (principal) | CPT/HCPCS: 84315; 87491; 87591; 87661 ==

== ENCOUNTER → 2021-06-21 13:14 | Outpatient (BNVA) | payer BC, SELFPAY | PROVIDERS: PCP Nurse Practitioner Family; Visit Provider Obstetrics & Gynecology | DX: O09.899 Supervision of other high risk pregnancies, unspecified trimester (principal) | CPT/HCPCS: 84315; 87086 ==

== ENCOUNTER → 2021-07-26 08:16 | Outpatient (BNVA) | payer BC, SELFPAY | PROVIDERS: PCP Nurse Practitioner Family; Visit Provider Obstetrics & Gynecology | DX: O09.899 Supervision of other high risk pregnancies, unspecified trimester (principal); Z3A.00 Weeks of gestation of pregnancy not specified | CPT/HCPCS: 82951; 82952; 85025; 86850 ==

== ENCOUNTER 2021-08-18 09:31 | Outpatient (CLI) | payer BC, SELFPAY ==
--- NOTE | 2021-08-18 09:45 | US_ITS ---
WS: [id number] LIMITED OBSTETRICAL ULTRASOUND HISTORY: O24.419 - Gestational diabetes mellitus in , COMPARISON: 05/24/2021, 02/26/2021 Presentation: Cephalic Cervix: Closed, 4.2 cm in length. Placenta: Posterior, no previa or abruption. Grade: 1 HEART: FHR of 157 BPM. measurements: BPD = 8.5 cm = 34w1d; 85th percentile. HC = 30.7 cm = 34w2d; 58 percentile. AC = 29.6 cm = 33w4d; 79th percentile. FL = 6.6 cm = 33w5d; 70th percentile. IBETH: 14.1 cm EFW: 2274 g; 77th percentile %. AGA by ultrasound: 34w0d VIJAY by ultrasound: 09/29/2021 On the abdominal circumference measurement is a hypoechoic structure within the abdomen which cannot be completely evaluated in this structure. This is an abnormal structure. Could be a dilated loop of bowel or the kidney. This needs further evaluation. US/[place] [address] IMPRESSION: 1. Single intrauterine gestation of 34 weeks 0 day with EDC of 09/29/2021. Fetu s measuring approximately 10 days greater than expected as compared to the firs t trimester ultrasound. 2. Estimated weight at the 77th percentile for age. 3. Abnormal hypoechoic structure in the abdomen seen only on the abdomin al circumference image. This needs further evaluation. Differential would inclu de abnormal loop of bowel or abdominal/renal mass.
== END 2021-08-18 09:32 | disposition home or self-care (01) ==
PROVIDERS: PCP Nurse Practitioner Family; Visit Provider Obstetrics & Gynecology
DX: O24.419 Gestational diabetes mellitus in pregnancy, unspecified control (principal); Z3A.00 Weeks of gestation of pregnancy not specified
CPT/HCPCS: 76816

== ENCOUNTER → 2021-08-25 15:36 | Outpatient (BNVA) | payer BC, SELFPAY | PROVIDERS: PCP Nurse Practitioner Family; Visit Provider Obstetrics & Gynecology | DX: O24.419 Gestational diabetes mellitus in pregnancy, unspecified control (principal); Z3A.00 Weeks of gestation of pregnancy not specified | CPT/HCPCS: 76816; 76819 ==

== ENCOUNTER → 2021-08-30 14:03 | Outpatient (BNVA) | payer BC, SELFPAY | PROVIDERS: PCP Nurse Practitioner Family; Visit Provider Obstetrics & Gynecology | DX: O09.899 Supervision of other high risk pregnancies, unspecified trimester (principal); O24.419 Gestational diabetes mellitus in pregnancy, unspecified control; Z3A.00 Weeks of gestation of pregnancy not specified | CPT/HCPCS: 84315; 85025 ==

== ENCOUNTER → 2021-09-08 14:45 | Outpatient (BNVA) | payer BC, SELFPAY | PROVIDERS: PCP Nurse Practitioner Family; Visit Provider Obstetrics & Gynecology | DX: O24.419 Gestational diabetes mellitus in pregnancy, unspecified control (principal); Z3A.00 Weeks of gestation of pregnancy not specified | CPT/HCPCS: 76816; 76819 ==

== ENCOUNTER → 2021-09-13 10:43 | Outpatient (BNVA) | payer BC, SELFPAY | PROVIDERS: PCP Nurse Practitioner Family; Visit Provider Obstetrics & Gynecology | DX: O09.899 Supervision of other high risk pregnancies, unspecified trimester (principal); O24.419 Gestational diabetes mellitus in pregnancy, unspecified control; F41.9 Anxiety disorder, unspecified; E66.9 Obesity, unspecified; F32.9 Major depressive disorder, single episode, unspecified; O09.891 Supervision of other high risk pregnancies, first trimester; O26.899 Other specified pregnancy related conditions, unspecified trimester; Z67.91 Unspecified blood type, Rh negative; Z3A.00 Weeks of gestation of pregnancy not specified | CPT/HCPCS: 82962; 84315; 87081 ==

== ENCOUNTER 2021-09-22 10:05 | Outpatient (CLI) | payer BC, SELFPAY ==
--- NOTE | 2021-09-22 10:15 | US_ITS ---
WS: [id number] BIOPHYSICAL PROFILE AMNIOTIC FLUID HISTORY: O24.419 - Gestational diabetes mellitus in , COMPARISON: 09/08/2021 Cardiac activity: 136 bpm. Cervix: closed. Placenta: Posterior, no previa or abruption. Placenta grade: 1 Parameters are as follows: Breathin Movement: 2 Tone: 2 Fluid volume: 2 Amniotic fluid index: 9.5 cm. Largest vertical pocket 4.1 cm. US/US OB F/U w BPP wo NST IMPRESSION: 1. Biophysical profile score: 8/8. 2. Normal amniotic fluid index.
== END 2021-09-22 10:06 | disposition home or self-care (01) ==
PROVIDERS: PCP Nurse Practitioner Family; Visit Provider Obstetrics & Gynecology
DX: O24.419 Gestational diabetes mellitus in pregnancy, unspecified control (principal)
CPT/HCPCS: 76816; 76819; 84315

== ENCOUNTER 2021-09-28 13:13 | Inpatient (IN) | payer BC, SELFPAY ==
[2021-09-28] VITALS (43 sets, daily range): BP systolic 97–142; BP diastolic 55–79; PULSE 72–95; RESP 16; TEMP 35.9–36.6; BMI 34.9
[2021-09-28 13:36] LABS: Basophils # 0.1 10^3/uL (0.0-0.1); Basophils % 0.6 %; Eosinophils % 0.4 %; Hematocrit 35.8 % (37.0-47.0); Hemoglobin 11.8 g/dL (11.5-15.3); Lymphocytes # 2.5 10^3/uL (0.8-4.8); Lymphocytes % 23.3 %; Mean Corpuscular Hemoglobin 29.2 pg (28.0-34.0); Mean Corpuscular Volume 88.6 fl (81-99); Mean Platelet Volume 10.3 fL (7.4-10.4); Monocytes # 0.7 10^3/uL (0.2-0.9); Monocytes % 6.6 %; Neutrophils # 7.28 10^3/uL (1.8-7.7); Neutrophils % 67.9 %; Nucleated Red Blood Cells % 0 %; Platelet Count 273 10^3/cmm (130-400); Red Blood Count 4.04 10^6/uL (4.1-5.3); Red Cell Distribution Width 14.5 % (12.1-15.1); White Blood Count 10.7 10^3/uL (4.0-10.0)
[2021-09-28 13:37] LABS: Glucose Point of Care 79 mg/dL (70-110)
[2021-09-28] MEDS: lactated ringers 1,000 ML 125 ML IV (13:57)
[2021-09-28] MEDS: ampicillin 2,000 MG in sodium chloride 0.9% (plus) 50 ML 100 MG IV (13:58)
[2021-09-28] MEDS: oxytocin 30 UNIT/500 ML BAG IV (14:40)
[2021-09-28 15:02] LABS: Glucose Point of Care 91 mg/dL (70-110)
[2021-09-28 16:07] LABS: Glucose Point of Care 78 mg/dL (70-110)
[2021-09-28 17:06] LABS: Glucose Point of Care 73 mg/dL (70-110)
[2021-09-28] MEDS: ampicillin 1,000 MG in sodium chloride 0.9% (plus) 50 ML 100 MG IV ×2 (18:15→21:39)
[2021-09-28] MEDS: alum-mag-hydroxide-sime 30 mL UDC PO (20:24)
[2021-09-28 20:41] LABS: Glucose Point of Care 89 mg/dL (70-110)
[2021-09-29] VITALS (99 sets, daily range): BP systolic 86–148; BP diastolic 47–84; PULSE 61–180; RESP 16–18; TEMP 35.5–37.1; O2SAT 80–100
[2021-09-29] MEDS: lactated ringers 1,000 ML 125 ML IV (00:26)
[2021-09-29] MEDS: ampicillin 1,000 MG in sodium chloride 0.9% (plus) 50 ML 100 MG IV ×3 (02:06→09:55)
[2021-09-29 02:40] LABS: Glucose Point of Care 77 mg/dL (70-110)
[2021-09-29] MEDS: lactated ringers 1,000 ML 999 ML IV (04:03)
--- NOTE | 2021-09-29 05:47 | P.ANESASSM_ITS ---
Pre-Anesthetic Assessment Height/Weight: Height 1.7 m Weight 101.151 kg Temp Pulse Resp BP Pulse Ox O2 Del Method 97.1 F L 81 16 121/64 100 09/29/21 05:13 09/29/21 05:45 09/28/21 20:58 09/29/21 05:45 09/29/21 05:42 09/28/21 11:55 Preop Diagnosis: Symptomatic cholelithiasis Labor Epidural Familial anesthetic complications: None Was Beta Mendez taken within 24 hours: N/A Was Clonidine taken within 24 hours: N/A Last intake: 09/28/21 @1700 Social No alcohol and No tobacco Exam alert, oriented x 3, clear to auscultation bilaterally and regular rate & rhythm Airway Submandibular: within normal limits Cervical ROM: within normal limits Mallampati: Class II History/ROS No significant history except as noted and No significant complaints Pulmonary Asthma CV/HEM None reported None reported Hepatic None reported GI Gastroesophageal Reflux Disease Metabolic Diabetes Mellitus [facility] [place] None reported Neuropsych Anxiety Anesthetic Plan ASA status: 2 Anesthesia: Anesthesia Evaluation and Regional (specify below) Risk of > 500 ml blood loss (7ml/kg in children): No Medications/Allergies Home Medications Medication Instructions Recorded Confirmed Last Taken Type citalopram 10 mg tablet 10 mg PO DAILY #90 tabs 12/14/20 09/27/21 Unknown Rx loratadine 10 mg tablet (Claritin) 10 mg PO DAILY 02/25/21 09/27/21 Unknown History prenat.vits,debra,msr-fqkt-hxoxz 1 tab PO DAILY 02/25/21 09/27/21 Unknown History magnesium hydroxide 400 mg/5 mL 5 ml PO DAILY PRN 05/28/21 09/27/21 Unknown History oral suspension (Dulcolax (magnesium hydroxide)) blood-glucose meter (Advocate #1 ea 07/27/21 09/27/21 Unknown Rx Blood Glucose Monitor) ferrous sulfate 325 mg (65 mg 325 mg PO DAILY 08/05/21 09/27/21 Unknown History iron) tablet (Iron (ferrous sulfate)) metformin 500 mg tablet,extended 500 mg PO BID #60 tabs 08/30/21 09/27/21 Unknown Rx release 24hr blood sugar diagnostic (Blood #120 ea 09/13/21 09/27/21 Unknown Rx Glucose Test) lancets 30 gauge (CareSens Lancets) #120 ea 09/23/21 09/27/21 Unknown Rx Allergies Allergy/AdvReac Type Severity Reaction Status Date / Time codeine AdvReac Itching, Verified 09/27/21 13:07 rash Current Medications Generic Name Dose Route Start Last Admin Trade Name Freq PRN Reason Stop Dose Admin Al Hydrox/Mg Hydrox/Simethicone 30 ml 09/28/21 13:15 09/28/21 20:24 Mivt-Zmz-Ikzspposu-Dorene 30 Ml Udc PO 30 ml Q4H PRN Administration INDIGESTION Ampicillin Sodium 1,000 mg/ 50 mls @ 100 mls/hr 09/28/21 17:15 09/29/21 05:46 Sodium Chloride IV 100 mls/hr Q4H ZULLY Administration Protocol Oxytocin 30 unit in 500 mls @ 1 mls/hr 09/28/21 14:00 09/29/21 03:25 Pitocin IV 16 milliunit/min .Q24H ZULLY 16 mls/hr Titration Protocol 1 MILLIUNIT/MIN Lactated Ringer's 1,000 mls @ 125 mls/hr 09/28/21 14:00 09/29/21 04:04 Lactated Ringers IV 0 mls/hr .Q8H ZULLY Infusion Ropivacaine 200 mg in 100 mls @ 13 mls/hr 09/29/21 05:00 09/29/21 05:45 Naropin Premix EPIDURAL 13 mls/hr .Q7H42M ZULLY Administration Lactated Ringer's 1,000 mls @ 999 mls/hr 09/29/21 04:00 09/29/21 04:03 Lactated Ringers IV 999 mls/hr .Q1H1M PRN Administration See label comments [facility] Medical History Allergy-induced asthma Anxiety Blood type O- Depression History of gestational diabetes mellitus (GDM) Had diet controlled GDM in second . Obesity depression Surgical History History of dilatation and curettage (03/09/18) Treatment blighted ovum. Performed by Dr. Milo Walden at [facility] in [place], [place]. History of laparoscopic cholecystectomy (~11/2019) S/P tonsillectomy and adenoidectomy (~1992) 8 years old Family History Family/Other Thyroid disease Paternal aunt Breast cancer Maternal aunt--dx age unknown Uterine cancer Maternal Great-grandmother--dx age unknown Grandmother Diabetes Maternal Hypertension Paternal Stroke Paternal Hyperlipidemia Paternal Grandfather Diabetes Paternal Hypertension Paternal CAD (coronary artery disease) Paternal Family/Other Diabetes Paternal aunt Father Hypertension Stroke Grandfather CAD (coronary artery disease) Maternal Denies family history of Colon cancer Ovarian cancer Social History Other details last substance use: Denies drug use. Female Reproductive History Date of last menstrual period: 01/02/21 : 3 Data Anesthesia : 09/28/21 12:45 Short CBC 09/28/21 Range/Units 12:45 WBC 10.7 H (4.0-10.0) 10^3/uL Hgb 11.8 (11.5-15.3) g/dL Hct 35.8 L (37.0-47.0) % MCV 88.6 (81-99) fl Plt Count 273 (130-400) 10^3/cmm Neut % (Auto) 67.9 % Neut # (Auto) 7.28 (1.8-7.7) 10^3/uL Cardiac Studies: No Data to Display
--- NOTE | 2021-09-29 05:51 | ANES.PROC ---
Anesthesia Procedures Procedure/Date: 09/29/21 Epidural Epidural: Time Out Performed: Yes Consents Signed: Procedure Consent Consent: from patient, risks and benefits reviewed and patient agrees to proceed Lumbar Level: L4-L5 Epidural position: sitting Epidural procedure: sterile prep of area, 1% lidocaine to numb the area, 18 g needle, negative for paresthesia passed, neg for paresthesia, test dose given, 1.5% xylocaine 1:200k epi, placed PCEA, no systemic response, sterile dressing applied, L.U.D. no apparent complications and 0.2% Ropiavacaine @ mls/hr (13)
[2021-09-29 07:30] LABS: Glucose Point of Care 79 mg/dL (70-110)
[2021-09-29] MEDS: NON-FORMULARY MEDICATION (Citalopram 10 mg tablet) 10 EACH PO (08:11)
--- NOTE | 2021-09-29 08:27 | PM.OPHPUD ---
Labor & Delivery H&P Update Date of Procedure: September 28, 2021 Date H&P Performed: 09/27/21 H&P update information: I have reviewed H&P completed within last 30 days, I have examined patient prior to procedure and Changes to prior documentation as noted here Changes to previous documentation: cervix is now 350/-3 Admission Diagnosis: @ 38 w4d induction for moderately controlled gestational diabetes, GBS positive Preop diagnosis: Symptomatic cholelithiasis Related Problem List Diagnoses (1) GBS (group B Streptococcus carrier), +RV culture, currently : (2) Gestational diabetes: (3) Rh negative state in antepartum period: (4) Supervision of other high-risk : (5) Obesity:
[2021-09-29] MEDS: lactobacillus 1 Tablet 1 TAB PO ×2 (08:44→17:44)
--- NOTE | 2021-09-29 12:27 | P.PCNOB_ITS ---
Delivery Note: Date of delivery: September 29, 2021 Pre-delivery diagnoses: iup @ 38 weeks, 4 days, GBS positive, gestational diabetes, rh negative Post- delivery diagnoses: same-delivered Procedure: Delivering Physician: Juanjose Estimated blood loss (mL): 150 Findings: term female in the cephalic presentation Pre-Delivery Course: The patient was admitted for induction at term. She was started on GBS prophylaxis and pitocin. She had AROM about 4 hours prior to delivery. fluid was clear. She had complete cervical dilation. She was set up to push. Delivery: The patient had complete cervical dilation and began to push. The head delivered in the MERRICK position over an intact perineum under epidural anesthesia. The nose and mouth were bulb suctioned. The shoulders and body delivered atraumatically. The baby was placed onto the mother's abdomen. The cord was clamped and cut. Cord blood was obtained. The placenta delivered spontaneously. It was inspected and found to be intact. Inspection of the perineum revealed no lacerations and no repair was required. Estimated blood loss 150 mL. Apgars on baby were 6 at 1 minute and 8 at 5 minutes, 9 at 10 minutes. Weight of baby is 7 pounds 5 ounces. Mother and baby were stable post delivery. History History History 3 Term 1 0 Miscarriages/Ectopic 1 Living Children 1 Past Pregnancies Del. Date GA/Weeks Outcome Route Wt Inf Gender Labor Lgth Comp. Anesth esia Location 02/27/18 9 spontaneous [facility] [place] [facility] in [place], [place] 09/29/19 40 live - full term Vaginal 7 lb 3 oz Female [facility]- Dr. Walden Delivery Date: 02/27/18 Last Updated by: Milo Walden MD Blighted ovum. Treated with D&C Dr. Milo Walden. Delivery Date: 09/29/19 Last Updated by: Milo Walden MD Diet controlled GDM Coding Level of Care Code Acute Database Tester for Chg Fwd
[2021-09-29] MEDS: benzocaine-menthol 78 gm Canister 1 SPRAY TOPICAL (15:17)
[2021-09-29] MEDS: ibuprofen 800 mg tablet PO ×2 (15:17→20:37)
[2021-09-29] MEDS: lanolin oint 7 gm 1 APPLIC TOPICAL (15:17)
[2021-09-29] MEDS: docusate sodium 100 mg Capsule PO (17:44)
[2021-09-29] MEDS: alum-mag-hydroxide-sime 30 mL UDC PO (20:37)
[2021-09-30 00:34] LABS: Hematocrit 34.7 % (37.0-47.0); Hemoglobin 11.5 g/dL (11.5-15.3); Mean Corpuscular HGB Conc 33.1 g/dL (30.0-36.0); Mean Corpuscular Hemoglobin 29.6 pg (28.0-34.0); Mean Corpuscular Volume 89.2 fl (81-99); Platelet Count 251 10^3/cmm (130-400); Red Blood Count 3.89 10^6/uL (4.1-5.3); Red Cell Distribution Width 14.8 % (12.1-15.1); White Blood Count 12.6 10^3/uL (4.0-10.0)
[2021-09-30 03:03] VITALS: BP 98/66; PULSE 65; TEMP 36.4; O2SAT 96
[2021-09-30] MEDS: prenatal vitamin Capsule 1 CAP PO (08:14)
[2021-09-30] MEDS: NON-FORMULARY MEDICATION (Citalopram 10 mg tablet) 10 EACH PO (08:15)
[2021-09-30] MEDS: lactobacillus 1 Tablet 1 TAB PO ×2 (08:15→21:10)
[2021-09-30] MEDS: ibuprofen 800 mg tablet PO ×3 (08:15→21:05)
[2021-09-30] MEDS: docusate sodium 100 mg Capsule PO (08:15)
--- NOTE | 2021-09-30 10:54 | P.PN_ITS ---
Vitals/I&O/Wt Last Vital Signs Temp 97.6 F 09/30/21 03:03 Pulse 65 09/30/21 03:03 Resp 18 09/29/21 19:45 BP 98/66 09/30/21 03:03 Pulse Ox 96 09/30/21 03:03 O2 Del Method 09/30/21 03:03 09/29/21 09/30/21 09/30/21 22:59 06:59 14:59 Output Total 350 / 750 Balance -350 / 3.450 Weight last 48 hrs Weight 223 lb Physical Exam Narrative: The patient is doing well this morning. Her only concern is cramping with breast feeding. I told her that this is quite common. Due to baby being GBS positive, she would like to stay 2 nights. Const: COMMON NORMALS: no acute distress, patient oriented x3, no limitations, healthy appearing, alert and well nourished GENERAL APPEARANCE: cooperative, comfortable, well kempt and well developed ORIENTATION/CONSCIOUSNESS: Yes awake, Yes oriented to person, Yes oriented to place and Yes oriented to time Resp: COMMON NORMALS: normal respiratory effort EFFORT & INSPECTION: Yes able to speak in complete sentences GI: COMMON NORMALS: Soft to palpation and non-tender PALPATION: Yes Soft to palpation Extremity: COMMON NORMALS: no calf tenderness Neuro: COMMON NORMALS: patient oriented x3 SENSORIUM/ORIENTATION: Yes alert, Yes oriented to person, Yes oriented to place and Yes oriented to time Psych: APPEARANCE: Yes well kempt Urinary Catheter Management: Scott Latex Free: Cath Placed During This Visit: yes, but has since been removed by the nurse Reason for Continuing Indwelling Catheter: Decision to DC Catheter Urinary Catheter Date of Insertion: 09/29/21 Urinary Catheter Time of Insertion: 06:25 Date Urinary Catheter Removed: 09/29/21 Time Urinary Catheter Discontinued: 11:40 Data : 09/30/21 00:23 Attestations Medical Necessity Statement*: She has already been here 2 midnights, but is PPD#1 Coding Level of Care Code Acute Water Resources Engineer for Radha Márquez
[2021-09-30 10:55] VITALS: BP 101/65; PULSE 86; RESP 15; TEMP 36.5; O2SAT 97
--- NOTE | 2021-09-30 11:12 | ANE.PACU2 ---
Inpatient post-anesthesia follow up: Airway intact: Yes Vital signs: Temperature 97.7 F Pulse Rate 86 Respiratory Rate 15 Blood Pressure 101/65 Pulse Oximetry 97 Oxygen Delivery Me thod Room Air Oxygen Flow Rate Fraction of Inspir ed Oxygen Hydration adequate: Yes Nausea and vomiting: No Pain level: 1 Mental status: Baseline Additional Comments: EMR review
[2021-09-30 13:06] VITALS: BP 108/72; PULSE 81; RESP 15; TEMP 36.5; O2SAT 97
[2021-09-30 21:19] VITALS: BP 122/78; PULSE 76; RESP 18; TEMP 36.6; O2SAT 97
[2021-10-01 04:00] VITALS: BP 103/67; PULSE 62; RESP 16; O2SAT 97
--- NOTE | 2021-10-01 07:34 | P.DS_ITS ---
Discharge Providers Date of Admission: 09/28/21 13:13 Date of Discharge: October 01, 2021 Attending Provider at Admission: Renata Sow MD Attending Provider at Discharge: Renata Sow MD Primary Care Provider: Karyn Meza Diagnoses at Discharge Discharge Diagnosis (1) GBS (group B Streptococcus carrier), +RV culture, currently : Status: Acute (2) Gestational diabetes: Status: Acute (3) Rh negative state in antepartum period: Status: Acute (4) Supervision of other high-risk : Status: Acute (5) Obesity: Status: Acute Reason for Visit Reason for Visit: Induction Hospital Course Hospital Course The patient was admitted for induction at term for poorly controlled gestational diabetes. She had spontaneous delivery of a term female . She did well and was ready for discharge on day #2 Physical Exam Const: COMMON NORMALS: no acute distress, patient oriented x3, no limitations, healthy appearing, alert and well nourished GENERAL APPEARANCE: cooperative, comfortable, well kempt and well developed ORIENTATION/CONSCIOUSNESS: Yes awake, Yes oriented to person, Yes oriented to place and Yes oriented to time Resp: COMMON NORMALS: normal respiratory effort EFFORT & INSPECTION: Yes able to speak in complete sentences GI: COMMON NORMALS: Soft to palpation and non-tender PALPATION: Yes Soft to palpation Extremity: COMMON NORMALS: no calf tenderness Neuro: COMMON NORMALS: patient oriented x3 SENSORIUM/ORIENTATION: Yes alert, Yes oriented to person, Yes oriented to place and Yes oriented to time Psych: COMMON NORMALS: mental status grossly normal, Normal thought process present, cooperative, normal affect and speech normal APPEARANCE: Yes well kempt SPEECH: Yes normal speech THOUGHT PROCESS: Normal thought process present Urinary Catheter Management: Scott Latex Free: Cath Placed During This Visit: yes, but has since been removed by the nurse Reason for Continuing Indwelling Catheter: Decision to DC Catheter Urinary Catheter Date of Insertion: 09/29/21 Urinary Catheter Time of Insertion: 06:25 Date Urinary Catheter Removed: 09/29/21 Time Urinary Catheter Discontinued: 11:40 Discharge Data Studies Completed and Pending Laboratory Results WBC 12.6 10^3/uL (4.0-10.0) H 09/30/21 00:23 RBC 3.89 10^6/uL (4.1-5.3) L 09/30/21 00:23 Hgb 11.5 g/dL (11.5-15.3) 09/30/21 00:23 Hct 34.7 % (37.0-47.0) L 09/30/21 00:23 MCV 89.2 fl (81-99) 09/30/21 00:23 MCH 29.6 pg (28.0-34.0) 09/30/21 00:23 MCHC 33.1 g/dL (30.0-36.0) 09/30/21 00:23 RDW 14.8 % (12.1-15.1) 09/30/21 00:23 Plt Count 251 10^3/cmm (130-400) 09/30/21 00:23 MPV 10.0 fL (7.4-10.4) 09/30/21 00:23 Neut % (Auto) 67.9 % 09/28/21 12:45 Lymph % (Auto) 23.3 % 09/28/21 12:45 [place] % (Auto) 6.6 % 09/28/21 12:45 Eos % (Auto) 0.4 % 09/28/21 12:45 Baso % (Auto) 0.6 % 09/28/21 12:45 Neut # (Auto) 7.28 10^3/uL (1.8-7.7) 09/28/21 12:45 Lymph # (Auto) 2.5 10^3/uL (0.8-4.8) 09/28/21 12:45 [place] # (Auto) 0.7 10^3/uL (0.2-0.9) 09/28/21 12:45 Eos # (Auto) 0.0 10^3/uL (0.0-0.8) 09/28/21 12:45 Baso # (Auto) 0.1 10^3/uL (0.0-0.1) 09/28/21 12:45 Nucleated RBC % (auto) 0 % 09/28/21 12:45 Nucleated RBCs # 0.0 /100WBC 09/28/21 12:45 POC Glucose 79 mg/dL (70-110) 09/29/21 07:28 Blood Type O Negative 09/28/21 12:45 Rho(D) Type Negative 09/28/21 12:45 Antibody Screen Negative 09/28/21 12:45 Screen Negative (Negative) 09/30/21 00:23 Vitals Last Vital Signs Temp 97.8 F 09/30/21 21:19 Pulse 62 10/01/21 04:00 Resp 16 10/01/21 04:00 BP 103/67 10/01/21 04:00 Pulse Ox 97 10/01/21 04:00 O2 Del Method 10/01/21 04:00 Discharge Plan Discharge Patient Disposition: Home Condition: Stable Prescriptions: New fluconazole [Diflucan] 150 mg tablet 150 mg PO Q3D Qty: 2 0RF Continued prenat.vits,debra,[id number]-dwac-bvecs Tablet 1 tab PO DAILY loratadine [Claritin] 10 mg tablet 10 mg PO DAILY magnesium hydroxide [Dulcolax (magnesium hydroxide)] 400 mg/5 mL suspension 5 ml PO DAILY PRN (Reason: Constipation) ferrous sulfate [Iron (ferrous sulfate)] 325 mg (65 mg iron) tablet 325 mg PO DAILY (DME) Blood Glucose Test Strip See Rx Instructions .Route Qty: 120 9RF Rx Instructions: As directed citalopram 10 mg tablet 10 mg PO DAILY Qty: 90 5RF (DME) blood-glucose meter [[facility] Blood Glucose Monitor] Misc See Rx Instructions .Route Qty: 1 0RF Rx Instructions: As directed (DME) lancets [CareSens Lancets] 30 gauge misc See Rx Instructions .Route Qty: 120 0RF Rx Instructions: As directed Discontinued metformin 500 mg tablet extended release 24hr 500 mg PO BID Qty: 60 8RF Rx Instructions: take prior to lunch and prior to dinner Discharge Orders: Discharge Order (Routine); Ordered 10/01/21 Ordered By: Renata Sow Patient Instructions: Depression (DC), Bleeding (DC), Opioid Safety (DC), Preeclampsia and Eclampsia After Delivery (GEN), OB Discharge Report, OB Food/Drug Interaction Guide, Opioid Safety, OB Home Care, OB [facility] Parent Packet, OB Vaginal Deliveries - [facility] Discharge Attestations Time Spent in Discharge Care*: less than 30 min Quality Metrics Clinical Quality Measures [ No reported AMI, CVA or VTE this stay] Coding Level of Care Code Acute Chg FW DC note Diagnoses GBS (group B Streptococcus carrier), +RV culture, currently O99.820 Gestational diabetes O24.419 Rh negative state in antepartum period O26.899; Z67.91 Supervision of other high-risk O09.899 Obesity E66.9
[2021-10-01 09:50] VITALS: BP 111/70; PULSE 79; RESP 16; TEMP 36.8; O2SAT 98
== END 2021-10-01 09:50 | disposition home or self-care (01) | DRG 806 ==
LOC: OPOB 13:16 → OBGYN 19:03
PROVIDERS: Admitting Provider Obstetrics & Gynecology; PCP Nurse Practitioner Family; Visit Provider Obstetrics & Gynecology
DX: O99.824 Streptococcus B carrier state complicating childbirth (principal); O36.0130 Maternal care for anti-D [Rh] antibodies, third trimester, not applicable or unspecified; Z37.0 Single live birth; O99.344 Other mental disorders complicating childbirth; O99.214 Obesity complicating childbirth; O24.429 Gestational diabetes mellitus in childbirth, unspecified control; Z3A.38 38 weeks gestation of pregnancy; J45.909 Unspecified asthma, uncomplicated; O75.89 Other specified complications of labor and delivery; D41.9 Neoplasm of uncertain behavior of unspecified urinary organ; F32.9 Major depressive disorder, single episode, unspecified; Z87.891 Personal history of nicotine dependence
CPT/HCPCS: 36415; 36416; 36430; 51702; 59025; 59409; 82962; 85025; 85027; 85460; 86850; 86900; 90384; J0290; J2795

== ENCOUNTER → 2021-11-11 08:20 | Outpatient (BNVA) | payer BC, SELFPAY | PROVIDERS: PCP Nurse Practitioner Family; Visit Provider Obstetrics & Gynecology | DX: O24.419 Gestational diabetes mellitus in pregnancy, unspecified control (principal); Z3A.00 Weeks of gestation of pregnancy not specified | CPT/HCPCS: 82947 ==

== ENCOUNTER → 2022-01-27 09:18 | Outpatient (BNVA) | payer BC, SELFPAY | PROVIDERS: PCP Nurse Practitioner Family; Visit Provider Nurse Practitioner Family | DX: M54.9 Dorsalgia, unspecified (principal); N39.0 Urinary tract infection, site not specified; F32.9 Major depressive disorder, single episode, unspecified | CPT/HCPCS: 81000; 87086 ==

== ENCOUNTER → 2022-02-16 09:52 | Outpatient (BNVA) | payer BC, SELFPAY | PROVIDERS: PCP Nurse Practitioner Family; Visit Provider Emergency Medicine | DX: R68.89 Other general symptoms and signs (principal); J10.1 Influenza due to other identified influenza virus with other respiratory manifestations | CPT/HCPCS: 87400 ==

== ENCOUNTER → 2022-10-25 15:24 | Outpatient (BNVA) | payer BC, SELFPAY | PROVIDERS: PCP Nurse Practitioner Family; Visit Provider Nurse Practitioner Women's Health | DX: N39.0 Urinary tract infection, site not specified (principal); O09.899 Supervision of other high risk pregnancies, unspecified trimester; Z3A.00 Weeks of gestation of pregnancy not specified | CPT/HCPCS: 82670; 84132; 84315; 84402; 84443; 87086 ==

== ENCOUNTER → 2022-11-16 10:00 | Outpatient (BNVA) | payer BC, SELFPAY | PROVIDERS: PCP Nurse Practitioner Family; Visit Provider Nurse Practitioner Women's Health | DX: L68.0 Hirsutism (principal) | CPT/HCPCS: 84132 ==

== ENCOUNTER → 2022-11-20 10:13 | Outpatient (BNVA) | payer BC, SELFPAY | PROVIDERS: PCP Nurse Practitioner Family; Visit Provider Emergency Medicine | DX: J02.9 Acute pharyngitis, unspecified (principal); J06.9 Acute upper respiratory infection, unspecified; H65.193 Other acute nonsuppurative otitis media, bilateral | CPT/HCPCS: 87071; 87880 ==

== ENCOUNTER → 2022-12-14 13:12 | Outpatient (BNVA) | payer BC, SELFPAY | PROVIDERS: PCP Nurse Practitioner Family; Visit Provider Nurse Practitioner Women's Health | DX: R10.2 Pelvic and perineal pain (principal) | CPT/HCPCS: 76830 ==

== ENCOUNTER → 2023-05-31 15:47 | Outpatient (BNVA) | payer BC, SELFPAY | PROVIDERS: PCP Nurse Practitioner Family; Visit Provider Nurse Practitioner Family | DX: N39.0 Urinary tract infection, site not specified (principal) | CPT/HCPCS: 81000 ==

== ENCOUNTER → 2023-06-20 09:07 | Outpatient (BNVA) | payer BC, SELFPAY | PROVIDERS: PCP Nurse Practitioner Family; Visit Provider Nurse Practitioner Family | DX: I10 Essential (primary) hypertension (principal); R53.83 Other fatigue; E78.5 Hyperlipidemia, unspecified; F41.9 Anxiety disorder, unspecified; L68.0 Hirsutism; Z00.00 Encounter for general adult medical examination without abnormal findings; Z68.33 Body mass index [BMI] 33.0-33.9, adult | CPT/HCPCS: 80053; 80061; 84439; 84443; 85025 ==

== ENCOUNTER → 2023-10-31 08:58 | Outpatient (BNVA) | payer BC, SELFPAY | PROVIDERS: PCP Nurse Practitioner Family; Visit Provider Nurse Practitioner Women's Health | DX: N92.6 Irregular menstruation, unspecified (principal); N93.9 Abnormal uterine and vaginal bleeding, unspecified | CPT/HCPCS: 83001; 83002; 83516; 84146; 84402; 84403; 87624 ==

== ENCOUNTER → 2023-11-10 08:13 | Outpatient (BNVA) | payer BC, SELFPAY | PROVIDERS: PCP Nurse Practitioner Family; Visit Provider Nurse Practitioner Women's Health | DX: N92.6 Irregular menstruation, unspecified (principal); N83.292 Other ovarian cyst, left side | CPT/HCPCS: 76830 ==

== ENCOUNTER → 2024-06-12 10:15 | Outpatient (BNVA) | payer BC, SELFPAY | PROVIDERS: PCP Nurse Practitioner Family; Visit Provider Nurse Practitioner Family | DX: I10 Essential (primary) hypertension (principal); R53.83 Other fatigue; E78.5 Hyperlipidemia, unspecified; M25.50 Pain in unspecified joint | CPT/HCPCS: 80053; 80061; 84443; 85025; 85651; 86038; 86140; 86431 ==